=== PATIENT | female | born 1940 | race Caucasian/White ===

== ENCOUNTER 2017-07-26 11:00 | Outpatient (RCR) | payer MEDICARE, OTHER, SELFPAY ==
--- NOTE | 2017-06-10 08:33 | HP.PTEVAL_ITS ---
Patient's Visit Information LOY JOHN is a 77 year old F referred to Physical Therapy by Mazin SEGOVIA with a diagnosis of BILATERAL KNEE OA. Date of Evaluation: 06/10/17 Physical Therapist: Lm Franklin, PT, - Visit Plan Frequency: 2x /Week Duration: 4 Weeks Plan: Aquatic PT for ROM KNEE FLEXABLITY,STRENGTHENING KNEE -HIPS - Subjective Subjective: This 77 y/o female presenst to physical therapy with osteoarthritis of both knees. Patient has had knee pain [address] Cordoba Gel 1 in bilateral knee injection May 18 2017. Recommended PT. Patient pain is worse with with kneeling,squatting,stairs ,extended walking,satnding. Symptoms better with sitting,resting. Denies parathesia/tingling. Pain affects quality of life , housework tasks and ADLS. 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 SOCIAL: - Pain Bilateral Knee Pain Intensity (Out of 10): 7 Pain Intensity Range: 10 Comment: worse - Objective POSTURE: mild foward posture. GAIT: mild foward posture mild knee valgus reciprocal pattern ,mild antalgic gait. NEURO: inact ,denies parathesia/ tingling. STAIRS: one step at time with rail. PALAPTION: MILD tender joint line. MMT: quads/hams 4-/5,hip flexion/abd 4-/5. AROM:knee flexion 0-130 degrees supine. FLEXABLITY: hams min - Special Tests R Knee Kristofer - Meniscus: Negative R Knee Phill - ACL: Negative R Knee Anterior Drawer - ACL: Negative R Knee Valgus - MCL: Negative R Knee Varus - LCL: Negative R Knee Patellar Apprehension - PFS: Negative R Knee Patellar Grind - PFS: Negative L Knee Kristofer - Meniscus: Negative L Knee Valgus - MCL: Negative L Knee Varus - LCL: Negative L Knee Patellar Apprehension - PFS: Negative L Knee Patellar Grind - PFS: Negative - Goals Goal 1:: Independant with Aquatic PT Goal Time Frame: 4-6 Weeks Goal 2:: Decrease knee pain with functiolan activities walking and standing by 50 % or greater Goal Time Frame: 4-6 Weeks Goal 3:: Patient to increase strength 4/5 quads/hams to improve function Goal Time Frame: 4-6 Weeks Goal 4:: Patinet improve quality of gait with less anatlgic 90 % of the time. Goal Time Frame: 4-6 Weeks Goal 5:: Patient able to pefrorm ADL'S and housework tasks with min limitations Goal Time Frame: 4-6 Weeks Goal 6:: Patient able to ascend/descen 12 steps reciprocal. Goal Time Frame: 4-6 Weeks - Rehabilitation Potential Physical Therapy Diagnosis: This patient has bilateral knee pain from OA with pain ,decrease strength impairs walking ,standing and function thus benifit from PT Rehabilitation Potential: Good - Anticipated Interventions Patient/Client Instruction: Educate patient on: Condition, Plan of Care For the Purpose of:: To decrease pain, To increase ROM, To increase tolerance to activity/condition/position, To improve performance and independence with ADL 's, To improve ability of physical actions for home/community/work/leisure, To improve gait and locomotor functions, To improve health of tissue, To decrease soft tissue restriction, To increase flexibility/ROM, To improve ability to perform tasks related to life management Therapeutic Exercise to Include: Strength training, Endurance training, Flexibilty training, Gait and locomotor training, In an aquatic setting, Passive ROM, Active ROM Comment: KNEE/HIPS For the Purpose of:: To decrease pain, To increase ROM, To improve muscle performance and motor function, To improve ability to perform ADL's, To increase tolerance to activity/condition/position, To improve performance and independence with ADL's, To improve ability of physical actions for home/ community/work/leisure, To improve health of tissue, To decrease soft tissue restriction, To increase flexibility/ROM, To improve ability to perform tasks related to life management Thank you for the opportunity to evaluate your patient. For Medicare and Medicare HMO plans, please review the plan of care and approve it. It will need to be FAXED BACK to us at [phone] for Medicare purposes. Please let me know if there are questions or concerns regarding this plan of care. Physician Signature: Date:
--- NOTE | 2017-07-26 11:55 | HP.PTDCSUM ---
HP - PT D/C Summary It has been my pleasure to treat LOY JOHN under orders from Mazin Cordoba, for the diagnosis of BILATERAL KNEE OA for a total of 10 visit(s). Discharge Date: 07/26/17 Please see the following information for a summary of their discharge status. - Subjective Subjective: Doing better .. walking better . Doing better with ADL'S - Pain Bilateral Knee Pain Intensity (Out of 10): 2 - Overall Improvement % Improvement: 50 - Objective Objective/Function: POSTURE: WFL. PALPATION: unremrkable. AROM: 0-125 degrees supine knee flexion. MMT: quads/hams/hip 4/5. GAIT: normal sharon - Goals Goal 1:: Independant with Aquatic PT Goal Progress: Goal Met Goal 2:: Decrease knee pain with functiolan activities walking and standing by 50 % or greater Goal Progress: Goal Met Goal 3:: Patient to increase strength 4/5 quads/hams to improve function Goal Progress: Goal Met Goal 4:: Patinet improve quality of gait with less anatlgic 90 % of the time. Goal Progress: Goal Met Goal 5:: Patient able to pefrorm ADL'S and housework tasks with min limitations Goal Progress: Goal Met Goal 6:: Patient able to ascend/descen 12 steps reciprocal. Goal Progress: Progressing - Plan Plan: D/C TO AQUATICS - D/C Information Discharge Comments: D/C to Aquatics If there are questions or concerns regarding this patient's physical therapy, please feel free to call me at [phone]. Thank you for the referral of this patient. Sincerely, Lm Franklin, PT,
== END 2017-07-26 19:00 | disposition home or self-care (01) ==
LOC: PT 11:00
PROVIDERS: Family Provider Internal Medicine; PCP Internal Medicine; Visit Provider Family Medicine
DX: M17.0 Bilateral primary osteoarthritis of knee (principal)
CPT/HCPCS: 97110; 97113; 97162; 97530

== ENCOUNTER 2018-01-29 08:35 | Emergency (ER) | payer MEDICARE, OTHER, SELFPAY ==
[2018-01-29] VITALS (7 sets, daily range): BP systolic 95–113; BP diastolic 59–88; PULSE 68–160; RESP 14–23; TEMP 36.5; O2SAT 98–99; BMI 33.7
--- NOTE | 2018-01-29 08:58 | EKG12_ITS ---
Test Reason : CARDIOVERSION Blood Pressure : / mmHG Vent. Rate : 091 BPM Atrial Rate : 091 BPM P-R Int : 146 ms QRS Dur : 076 ms QT Int : 340 ms P-R-T Axes : 029 -25 034 degrees QTc Int : 418 ms Sinus rhythm with occasional Premature ventricular complexes Otherwise normal ECG Confirmed by JOSE BOWEN, ROBINSON ([id number]), research editor DANIELLE RIVERA ([id number]) on 02/01/2018 1:40:29 PM Referred By: COURTNEY Confirmed By:ROBINSON GARCIA MD
--- NOTE | 2018-01-29 08:59 | CT_ITS ---
STUDY: CT BRAIN WITHOUT CONTRAST REASON FOR EXAM: Female, 77 years old. Chest pain RADIATION DOSAGE (If Supplied By Facility): CTDIvol = ( 44.99 ) mGy, DLP = ( 745.49 ) mGycm TECHNIQUE: Transaxial CT imaging of the brain was performed without administration of intravenous contrast material. Individualized dose optimization techniques were used for this CT. COMPARISON: None. FINDINGS: Normal soft tissue structures. Normal calvarium. Normal size ventricles and extra-axial spaces for the patient's age. Mild white matter microangiopathic ischemic changes of the cerebral hemispheres. Normal basal ganglia and thalami. Normal brainstem. Normal cerebellum. There is a left chronic subdural hematoma/collection measuring 5 mm in thickness. There are no findings of an acute ischemic infarction. Normal visualized paranasal sinuses. CT/Brain/Head without Contrast IMPRESSION: Chronic left subdural hematoma/collection. Electronically Signed: Lam Kiser DO at 11:13 EST Tel [phone], Service support ,
--- NOTE | 2018-01-29 09:19 | ED.VISSUMM ---
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 She reports that she has palpitations that began approximately 11 PM yesterday. States that she feels as though her heart is racing. She is lightheaded, nauseated, diaphoretic, and short of breath. She reports that she did have an episode of chest pain with this approximately 6:00 this morning while at rest. Pain is 7 out of 10 at worst and she is pain-free currently. It was worsened by exertion. She reports that she took a dose of nitroglycerin. Approximately 10-15 minutes later she reports that she got up and tried to walk to the couch. She had a syncopal episode and fell to the floor. She denies any injuries from this. Patient has a Zio XT monitor on that was placed by her travel guide earlier this week. States that she was supposed to wear this for 2 weeks. States that she had an episode of SVT while in the hospital in November that did not respond to adenosine. She reports that they gave her a different medication that slowed her heart rate. Patient does have a history of what sounds to be a cardiomyopathy following chemo and radiation for breast cancer in 2013. She reports that she had an echocardiogram in 2016 that they state looked better. She had a heart catheterization in 2006 that did not require stents. She is unsure about a stress test. Patient reports that December 16 she was diagnosed with a subarachnoid and subdural hemorrhage. States that she is scheduled to have a follow-up CT in 4 days. Physical Examination: Vitals: 97.7, 113/88, 160, 17, 98% on room air which is not hypoxic. Repeat blood pressure is 95/66.. General: Well-nourished and well-developed. Head: Normocephalic atraumatic. Neck: Supple, no lymphadenopathy. No JVD. Nontender. Cardiovascular: Tachycardic regular rhythm. No murmurs. Respiratory: No respiratory distress. Clear to auscultation bilaterally. Abdominal: Soft, nontender, nondistended, normal bowel sounds. No guarding, rebound, or peritoneal signs. Back: Nontender. Extremities: Nontender, no edema. Skin: Normal color, no rash. Neurologic: Alert and oriented ?3. Cranial nerves II through XII are intact. Normal strength and sensation. Psych: Normal affect. Test Results: EKG shows SVT at 161 with inferior Q waves. This is a change from her last EKG which was in 2013. Repeat EKG is sinus at [address]pecific [address] changes. Initial troponin 0 0.081. Chem-7 is more for BUN of 39, creatinine 2.14, glucose 114. Last creatinines we had were 1.1-1.3. However, these were in 2012 2013. Patient reports that she does have a history of renal insufficiency. CBC is more for hemoglobin of 15.3, lymphocytes 18, monocytes of 12. Chest x-ray is normal. CT brain shows no acute disease and a chronic left subdural hematoma/collection. Emergency Department Course and Treatment: I discussed treatment options with the patient. States that adenosine is not worked in the past and she did not feel well when they did this. I have her blood pressure is low and I do not feel that Cardizem or beta-renee is a good idea. She had her external monitor removed and was given etomidate IV. She was cardioverted and returned to sinus rhythm. She tolerated this well. Treatment Plan: The patient was discussed with Dr. Orellana, covering for her travel guide at [facility], and at this time will be discharged. She is instructed to stop her lisinopril/hydrochlorothiazide and begin metoprolol 25 mg twice daily. She is instructed that if she does go back into an episode of palpitations that she take an extra dose of metoprolol. If this does not resolve in 1-2 hours. Return to the emergency department for further evaluation and transfer. Follow-up with her travel guide in 1-2 weeks for another exam. Return to the emergency department for any worsening symptoms. Disposition: To home in improved and stable condition. Impression: 1. SVT. 2. Syncope after nitroglycerin. 3. Renal insufficiency. This note was generated with Fuzeation software. It may contain incorrect words, spelling, and punctuation that were not noted in review of the chart prior to signing ED Disposition - Plan for ED Patient: Disposition: Home or Assisted Living Chief Complaint: Syncope Instructions: ED Tachycardia Pat PSVT Referrals: Apoorva Carcamo MD [Primary Care Provider] - Additional Instructions: Follow up with Dr. Andrews in 1-2 weeks for another exam. Stop your lisinopril?HCTZ and begin lopressor 25 twice a day. If you have another episode of palpitations take an extra dose of metoprolol. If it does not resolve within 1-2 hours return to the ER.
[2018-01-29 09:20] LABS: Absolute Neutrophil Count 5.5 X10^3/uL (2.0-7.7); Eosinophil# 0.15 X10^3/uL; Eosinophils% 1.8 % (0-5); Hematocrit 45.1 % (37-47); Hemoglobin 15.3 g/dl (12.0-15.0); Lymphocyte % 18.3 % (19-41); Mean Corp Hgb Conc 33.9 g/gl (32-36); Mean Corpuscular Volume 100.2 fL (81-99); Mean Platelet Vol. 10.4 fl (6.2-12.0); Monocyte# 0.98 X10^3/uL; Neutrophil # 5.52 X10^3/uL (2.7-7.7); Neutrophil % 67.5 % (47-70); Platelet Count 172 K/mm3 (150-450); RBC Distribution Width CV 12.9 % (11.6-14.6); RBC Distribution Width SD 46.7 fl (35.1-43.9); White Blood Count 8.2 K/mm3 (4.4-11.0)
--- NOTE | 2018-01-29 09:20 | RAD_ITS ---
STUDY: X-RAY CHEST REASON FOR EXAM: Female, 77 years old. Chest pain TECHNIQUE: Single frontal view COMPARISON: None. FINDINGS: The lungs are clear and expanded. There is no demonstrated pleural abnormality. Normal size heart. Normal mediastinum and des. Normal visualized pulmonary arteries. Normal visualized aortic arch and descending thoracic aorta. Degenerative changes of the thoracic spine. Normal visualized ribs, clavicles, and shoulders. There is no demonstrated abnormality of the visualized soft tissue structures of the upper abdomen. RAD/Chest 1 View (Portable) IMPRESSION: Normal x-ray examination of the chest. Electronically Signed: Lam Kiser DO at 9:42 EST Tel [phone], Service support ,
[2018-01-29 09:21] LABS: POSITIVE COUNT NO; POSITIVE DIFFERENTIAL NO; POSITIVE MORPHOLOGY NO
--- NOTE | 2018-01-29 09:23 | ED.DCSUM_ITS ---
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 She reports that she has palpitations that began approximately 11 PM yesterday. States that she feels as though her heart is racing. She is lightheaded, nauseated, diaphoretic, and short of breath. She reports that she did have an episode of chest pain with this approximately 6:00 this morning while at rest. Pain is 7 out of 10 at worst and she is pain-free currently. It was worsened by exertion. She reports that she took a dose of nitroglycerin. Approximately 10-15 minutes later she reports that she got up and tried to walk to the couch. She had a syncopal episode and fell to the floor. She denies any injuries from this. Patient has a Zio XT monitor on that was placed by her underwriter solicitation director earlier this week. States that she was supposed to wear this for 2 weeks. States that she had an episode of SVT while in the hospital in November that did not respond to adenosine. She reports that they gave her a different medication that slowed her heart rate. Patient does have a history of what sounds to be a cardiomyopathy following chemo and radiation for breast cancer in 2013. She reports that she had an echocardiogram in 2016 that they state looked better. She had a heart catheterization in 2006 that did not require stents. She is unsure about a stress test. Patient reports that December 16 she was diagnosed with a subarachnoid and subdural hemorrhage. States that she is scheduled to have a follow-up CT in 4 days. Physical Examination: Vitals: 97.7, 113/88, 160, 17, 98% on room air which is not hypoxic. Repeat blood pressure is 95/66.. General: Well-nourished and well-developed. Head: Normocephalic atraumatic. Neck: Supple, no lymphadenopathy. No JVD. Nontender. Cardiovascular: Tachycardic regular rhythm. No murmurs. Respiratory: No respiratory distress. Clear to auscultation bilaterally. Abdominal: Soft, nontender, nondistended, normal bowel sounds. No guarding, rebound, or peritoneal signs. Back: Nontender. Extremities: Nontender, no edema. Skin: Normal color, no rash. Neurologic: Alert and oriented ?3. Cranial nerves II through XII are intact. Normal strength and sensation. Psych: Normal affect. Test Results: EKG shows SVT at 161 with inferior Q waves. This is a change from her last EKG which was in 2013. Repeat EKG is sinus at 91 with PVCs and nonspecific ST changes. Initial troponin 0 0.081. Chem-7 is more for BUN of 39, creatinine 2.14, glucose 114. Last creatinines we had were 1.1-1.3. However, these were in 2012 2013. Patient reports that she does have a history of renal insufficiency. CBC is more for hemoglobin of 15.3, lymphocytes 18, monocytes of 12. Chest x-ray is normal. CT brain shows no acute disease and a chronic left subdural hematoma/collection. Emergency Department Course and Treatment: I discussed treatment options with the patient. States that adenosine is not worked in the past and she did not feel well when they did this. I have her blood pressure is low and I do not feel that Cardizem or beta-renee is a good idea. She had her external monitor removed and was given etomidate IV. She was cardioverted and returned to sinus rhythm. She tolerated this well. Treatment Plan: The patient was discussed with Dr. 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 She is instructed to stop her lisinopril/hydrochlorothiazide and begin metoprolol 25 mg twice daily. She is instructed that if she does go back into an episode of palpitations that she take an extra dose of metoprolol. If this does not resolve in 1-2 hours. Return to the emergency department for further evaluation and transfer. Follow-up with her underwriter solicitation director in 1-2 weeks for another exam. Return to the emergency department for any worsening symptoms. Disposition: To home in improved and stable condition. Impression: 1. SVT. 2. Syncope after nitroglycerin. 3. Renal insufficiency. This note was generated with Veebowation software. It may contain incorrect words, spelling, and punctuation that were not noted in review of the chart prior to signing ED Disposition - Plan for ED Patient: Disposition: Home or Assisted Living Chief Complaint: Syncope Instructions: ED Tachycardia Pat PSVT Referrals: Apoorva Carcamo MD [Primary Care Provider] - Additional Instructions: Follow up with Dr. Andrews in 1-2 weeks for another exam. Stop your lisinopril?HCTZ and begin lopressor 25 twice a day. If you have another episode of palpitations take an extra dose of metoprolol. If it does not resolve within 1-2 hours return to the ER.
[2018-01-29] MEDS: 0.9% Normal Saline 1,000 ML 1000 ML IV (09:30)
--- NOTE | 2018-01-29 09:30 | EKG12_ITS ---
Test Reason : IRR HB Blood Pressure : / mmHG Vent. Rate : 161 BPM Atrial Rate : 163 BPM P-R Int : 000 ms QRS Dur : 084 ms QT Int : 298 ms P-R-T Axes : 000 -14 072 degrees QTc Int : 487 ms Supraventricular tachycardia Inferior infarct , age undetermined Abnormal ECG Confirmed by JOSE BOWEN, ROBINSON ([id number]), newspaper editor managing DANIELLE RIVERA ([id number]) on 02/01/2018 1:40:47 PM Referred By: SUSANNA Confirmed By:ROBINSON GARCIA MD
[2018-01-29 09:41] LABS: Anion Gap 12 (5-15); BUN 39 mg/dL (7-18); BUN/Creat Ratio 18.2 RATIO (10-20); Calcium,Total 8.8 mg/dL (8.5-10.1); Chloride 104 mmol/L (98-107); Creatinine, Serum 2.14 mg/dL (0.55-1.02); EST Glomerular Filtration Rate 24 mL/min (>60); Est Glom Filt Rate - Afr Amer 29 mL/min (>60); Estimated Creatinine Clearance 17.14 ml/min; Glucose 114 mg/dL (74-106); Potassium 4.4 mmol/L (3.5-5.1); Sodium Level 139 mmol/L (136-145)
--- NOTE | 2018-01-29 10:13 | NURSING ---
CALLED [facility] FOR DR JUDY MIX, MOP HANDLE ASSEMBLER. TALKED TO NURSE CRYPTOANALYSIS TEACHER. SENT ME TO SOMEONE THAT COULD PAGE OUT CRYPTOANALYSIS TEACHER.
--- NOTE | 2018-01-29 10:19 | NURSING ---
DR PAUL MONTANA WILL BE ACCOUNTING GENERALIST CLINIC LEAD.
[2018-01-29] MEDS: Acetaminophen 500 MG Tablet 1000 MG PO (10:49)
--- NOTE | 2018-01-29 11:06 | NURSING ---
REPAGING DR MONTANA FROM F
--- NOTE | 2018-01-29 11:39 | NURSING ---
DR MONTANA RETURNED CALL. SAID TO HAVE PRINCIPAL ADMINISTRATIVE CLERK QUARTERBACK PAGED
--- NOTE | 2018-01-29 11:42 | NURSING ---
ANKUSH SMITH, TALKED TO OSCAR. HE IS GOING TO PAGE DR FARR FOR US.
--- NOTE | 2018-01-29 11:45 | NURSING ---
DR YORDAN MULLINS
--- NOTE | 2018-01-29 12:36 | ED.RN ---
IV DC'ED, CATHETER INTACT, SMALL GAUZE DRESSING PLACED. DISCHARGE INSTRUCTIONS GIVEN TO AND REVIEWED WITH PATIENT, PATIENT DENIES QUESTIONS OR CONCERNS AND VOICES UNDERSTANDING OF DISCHARGE INSTRUCTIONS. PT TO PRIVATE VEHICLE VIA WHEELCHAIR.
== END 2018-01-29 12:37 | disposition home or self-care (01) ==
LOC: ED 09:10
PROVIDERS: Emergency Provider Emergency Medicine; Family Provider Internal Medicine; PCP Internal Medicine
DX: I47.1 Supraventricular tachycardia (principal); R55 Syncope and collapse; N28.9 Disorder of kidney and ureter, unspecified; I10 Essential (primary) hypertension; Z85.3 Personal history of malignant neoplasm of breast; Z79.899 Other long term (current) drug therapy; Z82.49 Family history of ischemic heart disease and other diseases of the circulatory system
CPT/HCPCS: 70450; 71045; 80048; 84484; 85025; 92960; 93005; 96360; 96361; 99285; J7030; A4216

== ENCOUNTER 2018-03-16 10:00 | Outpatient (RCR) | payer MEDICARE, OTHER, SELFPAY ==
--- NOTE | 2018-01-30 14:48 | HP.OTEVAL_ITS ---
Patient's Visit Information LOY JOHN is a 77 year old F, referred to Occupational Therapy by SAYDA IGLESAIS, with a diagnosis of L subdural hematoma. Date of Evaluation: 01/30/18 Occupational Therapist: Mary Christie, ANSLEYR/Lizet, CHT - Subjective Subjective: pt. arrives and states that she fell down 13 steps backwards while carrying laundry. Following the fall, Pt. CT scan indicated that pt. had an subarachnoid bleed and subdural bleed on the L side of brain. Pt. reports that brain shifted over with the bleed. The fall occured on around (pt. was unsure of the exact date). Recently, pt. also had PSVT tachycardia increase and was admitted into the ER. Pt. was medically tx as appropriate and was released from the ER in the afternoon. - Pain L side of head 2 Pain Intensity Range: 0, 1, 2, 3, 4, 5, 6 - Objective Objective/Observation: OT noted that pt. needed increased time to follow directions and was delayed in her responses to questions at times. - ROM ROM Comments: ROM is functional - Strength Shoulder: 4/5 in R shoulder, L shoulder is 5/5 Technical Research Scientist: 50 # in L and 30# in R Lateral Pinch: 17# in L and 9 # in R Tripod Pinch: 11# in L and 7# in R Strength Comments: no pain with MMT or conductor sleeping car/pinch tests - Sensation Sensation Comments: denies - Cognitive Skills Follows Directions: Yes Cognitive Comments: pt. demo increased time to process directions, therefore causing increased time to complete tasks. - Attention Attention: Normal - Nine Hole Peg Right: 23.92 sec. Left: 22.81 sec. - In-Hand Manipulation Palm to Finger Translation: Mild - Right, Normal - Left Comments: little slower in R than in L, however, pt. is L handed - Stroke Specific Quality of Life Total SS-QOL Score: 135 - Goals Goal:: Patient will increase overall conductor sleeping car strength by 15 lbs. in R hand by completing strengthening exercises and stretches in order to complete BADL?s and IADL?s. Patient will improve lateral and tripod grasps by 5 lbs. in R hand by completing strengthening and stretching exercises in order to complete BADL?s and IADL?s. Patient will complete and demo understanding of UE strengthening exercises to improve UE strength to 4+/5 for increased ability to functionally complete BADL's and IADL's. Goal:: Patient will report overall decrease in pain of <3 in order to complete BADL?s and IADL?s. Goal:: Patient will demonstrate increased speed of motor performance to decrease time to complete BADL's and IADL's. Patient will complete fine motor tasks in order to improve in hand manipulation and increase speed demonstrated by decreased time on 9 hole peg test to less than one min. for increased ability to complete BADL's and IADL's. Goal:: Patient will report understanding of compensatory methods for BADL's and IADL's and report increased I with ability to complete BADL's and IADL's. Pat ient will demo understanding of ECM in order to functionally complete BADL's and IADL's. Goal:: Patient will demo ability to complete 4 money management scenerios in decreased time in order to I and accurately perform volunteer position. Goal:: Patient will report increased I with writing tasks in order to have increased I with IADL's. Goal:: patient will demo/report decreased time to complete tasks required for completion of main entree cook and cashier services for increased I with work tasks. - Rehabilitation General Assessment: Patient presents after exerperiencing a fall that caused a subarachnoid bleed and subdural bleed on the L side of the head. Recently, pt. also was hospitalized after experiencing a PSVT tachycardia. Following these recent incidents, pt. is presenting with decreased UE strength, speech and language difficulties, increased fatigue, difficulty with fine motor skills, l taco manipulating small objects and dexterity, and increased pain in the L side of head. Pt. was referred to speech for further treatment of speech and language difficulties. Pt. would benefit from OT services 2-3x/wk for 6 wks. Therapy session was directly supervised by Mary DAVSI/ERIC Hinds. Rehabilitation Potential: Good - Anticipated Interventions Anticipated Interventions: Early Active Motion, Strengthening, Joint Protection/Energy Conservation, Ergonomic Education, Fine Motor Coord/Thaddeus, Cognitive Skills, ADL Training, Education re assistive Equipment, Education re Diagnosis, Caregiver Training, Home Program - Visit Plan Frequency: 2-3x /Week Duration: 6 Weeks TEXT: Thank you for the opportunity to evaluate your patient. For Medicare and Medicare HMO plans, please review the plan of care and approve it. It will need to be FAXED BACK to us at [phone] for Medicare purposes. Please let me know if there are questions or concerns regarding this plan of care. Physician Signature:_ Date:
--- NOTE | 2018-02-09 11:38 | HP.SP.AD ---
History - History Date of Eval: 02/09/18 Medical Diagnosis (from RX): L subdural hematoma Date of Onset of Diagnosis: november 2017 Previous speech therapy: No Other Relevant Medical History/Diagnoses/Surgery: patient stated that she had fallen 13 steps backwards while carrying laundry. Patient stated that approximately on December 16, [address] scan and it indicated that patient had a subarachnoid bleed. Recently Patient also had PSVT tachycardia increase and was admitted into the ER. Patient was medically treated as appropriate and was released from the ER in the afternoon. Patient states that she has headaches daily usually at night. She has been taking Tylenol which helps. She stated almost every night she has a headache and takes Tylenol. They are gone in the morning when she wakes up. Smoking Status: Never smoker Hx Smoking: No Hx Tobacco Use: No - Pain Is pain an issue with your current prescribed condition?: Yes Patient Allergies - Allergies Allergies labetalol [Labetalol] Allergy (Verified 01/29/18 08:36) Chest tightness tetracycline [Tetracycline] Allergy (Verified 01/29/18 08:36) Rash clonidine Adverse Reaction (Verified 01/29/18 08:36) Other ibuprofen Adverse Reaction (Verified 01/29/18 08:36) Abd cramps/diarrhea CLQT - CLQT CLQT Administered: Yes CLQT: Cognitive Linguistic Quick Test (CLQT) is a criterion - referenced assessment designed for adults between the ages of 18 and 89 with known or suspected neurological dysfuntions. The CLQT is to assess strength and weaknesses in five cognitive domains. Severity ratings are within normal limits, mild, moderate, severe deficits. The subtests are as follows: Date: 02/09/18 - Attention Attention: WNL - Memory Memory: Moderate - Executive Functions Executive Functions: WNL - Language Language: WNL - Visuospatial Skills Visuospatial Skills: WNL - Clock Drawing Severity Rating Clock Drawing Severity Rating: WNL - CLQT Comments comments Patient appeared a little anxious during testing. When presented with the story retelling task, She commented oh no I have to remember the whole thing. Therapist reassured her to just do the best that she could do. Plan - Plan Plan: Patient was within the normal range for attention, executive functions, language and visuospatial skills. She displayed a moderate range of severity for memory, however patient did appear anxious during this task and this may have affected her performance. Patient is receiving OT and the Occupational therapist will monitor her memory skills and incorporate memory tasks into her occupational therapy tasks. - Recommendations Treatment Warranted: No - Prognosis Prognosis: Excellent Education - Patient has Indicated that the Following Identified Educational Needs: None The Patient has indicated that they have no educational or learning abilities that may effect their care.: Yes - Patient Instruction Patient Education: Diagnosis Person Taught: Patient Teaching Method: Discussion Response to teaching: Verbalize understanding
--- NOTE | 2018-02-09 11:42 | HP.SP.DC ---
ST Discharge Summary - Discharged: Discharge: Patient was within the normal range for attention, executive functions, language and visuospatial skills. She displayed a moderate range of severity for memory, however patient did appear anxious during this task and this may have affected her performance. Patient is receiving OT and the Occupational therapist will monitor her memory skills and incorporate memory tasks into her occupational therapy tasks. [ End ]
--- NOTE | 2018-02-15 11:12 | HP.PTEVAL ---
Patient's Visit Information LOY JOHN is a 77 year old F referred to Physical Therapy by SAYDA IGLESIAS with a diagnosis of Balance difficulties. Date of Evaluation: 02/15/18 Physical Therapist: Rajeev Patel DPT, OC - Visit Plan Frequency: 2x /Week Duration: 4-6 Weeks Plan: 2x/week for 4 weeks for. 1. perform and teach vestibualr(foam and or ec) ex. 2. VOR standing walking progression. 3. Sink based LE strength ex taking care with B knee OA. 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 - Subjective Subjective: November fell BW down flight of steps. Had Subdural bleed diagnosed in December. admitted 01/18 to [facility] with embolization procedure to shift brain back to midline. Had dull JOVEL for the first month. Symptoms that sent her to hospital was JOVEL and lost ability to speak and text from the pressure. MRI ordered from previous oncologist showed the subdural bleed. Is walk and wobbly from all of this and wants to get stronger. 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 Had PT here in spring for knees and injections which helped. Initially was wobbling to the left but that is gone. Has a lot of fatigue. Balance slightly worse overall. Intiially fell down the steps after midnight carrying load of laundry. Lights on. Likes to ride bike and is not doing that. Laundry on steps is not a problem but hangs on and rests half way up. Uses cane to walk longer distance. 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 Basic aDLs are OK but energy is low. - Pain JOVEL intermittent Pain Intensity (Out of 10): 0 Pain Intensity Range: 0, 3 - Objective VOR walking is challenging. Walks with a cane mod I and without AD on firm flat surface easily. trasnfers without UE. Steps are challenging without a rail and needs rail to descend, knees are stiff and sore. LE AROM WFL, some tightness present in HS and gastroc. Strength LE 4-/5 without pain except knee ext R>L. reflexes 1/3 patella and achilles. Sensation LE WNL to gross light touch. Coordination to reciprocal toe and heel tap and heel to persaud are normal. - Balance Scores Functional Gait Assessment Score: 24 % Disability: 20.0000 CATSIB Score (Max score 120 seconds): 94 - Goals Goal 1:: Pt I with approp vest/narrow KAILASH and sink strength ex to minimize future problems. Goal Time Frame: 4-6 Weeks Goal 2:: Pt score 26/30 on FGA to dimiiniosh fall risk Goal Time Frame: 4-6 Weeks Goal 3:: Pt feel back to energy level prefall 90% Goal Time Frame: 4-6 Weeks - Rehabilitation Potential Physical Therapy Diagnosis: Balance and strength deficits. Rehabilitation Potential: Fair - Anticipated Interventions Patient/Client Instruction: Educate patient on: Condition, Plan of Care For the Purpose of:: To increase tolerance to activity/condition/position, To improve gait and locomotor functions Therapeutic Exercise to Include: Strength training, Balance training For the Purpose of:: To increase tolerance to activity/condition/position, To improve balance Thank you for the opportunity to evaluate your patient. For Medicare and Medicare HMO plans, please review the plan of care and approve it. It will need to be FAXED BACK to us at [phone] for Medicare purposes. Please let me know if there are questions or concerns regarding this plan of care. Physician Signature: Date:
--- NOTE | 2018-02-22 08:24 | HP.OTDCSUM_ITS ---
HP - OT D/C Summary It has been my pleasure to treat LOY JOHN under orders from SAYDA IGLESIAS, for the diagnosis of L subdural hematoma for a total of 8 visit(s). Please see the following information for a summary of their discharge status. 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 lateral 12# in L and 11# in R. tripod 13# in L and 13# in R. 9 hole peg: L 23.32. 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 in R hand by completing strengthening exercises and stretches in order to complete BADL?s and IADL?s. Patient will improve lateral and tripod grasps by 5 lbs. in R hand by completing strengthening and stretching exercises in order to complete BADL?s and IADL?s. Patient will complete and demo understanding of UE strengthening ex ercises to improve UE strength to 4+/5 for increased ability to functionally complete BADL's and IADL's. Goal:: Patient will report overall decrease in pain of <3 in order to complete BADL?s and IADL?s. Goal:: Patient will demonstrate increased speed of motor performance to decrease time to complete BADL's and IADL's. Patient will complete fine motor tasks in order to improve in hand manipulation and increase speed demonstrated by decreased time on 9 hole peg test to less than one min. for increased ability to complete BADL's and IADL's. Goal:: Patient will report understanding of compensatory methods for BADL's and IADL's and report increased I with ability to complete BADL's and IADL's. Patient will demo understanding of ECM in order to functionally complete BADL's and IADL's. Goal:: Patient will demo ability to complete 4 money management scenerios in decreased time in order to I and accurately perform volunteer position. Goal:: Patient will report increased I with writing tasks in order to have increased I with IADL's. 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 - Plan Plan: crossing midline. money management tasks, counting money, oneil register simulation. UE strengthening - D/C Information Discharge Comments: pt. made progress with strength, fine motor skills, and demo/reports improved processing time when completing functional tasks. 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 pt. reports no further concerns and is d/c on this date. OT instructed pt. to cont. HEP upon d/c. If there are questions or concerns regarding this patient's occupational therapy, please fell free to call me at [phone]. Thank you for the referral of this patient. Sincerely, Mary Christie, OTR/L, CHT
--- NOTE | 2018-03-16 10:48 | HP.PTDCSUM ---
HP - PT D/C Summary It has been my pleasure to treat LOY JOHN under orders from SAYDA IGLESIAS, for the diagnosis of Balance difficulties for a total of 8 visit(s). Discharge Date: 03/16/18 Please see the following information for a summary of their discharge status. - Subjective Subjective: Think it has helped. Feels geno workman has more energy. Balance is more steady and doesn't feel like she is weaving. Exercises at home at counter and in corner for balance. Fox ee doctor sometime soon. - Pain JOVEL intermittent Pain Intensity (Out of 10): 2 bilat knees Pain Intensity (Out of 10): 4 - Overall Improvement % Improvement: 75 - Objective Objective/Function: +2 on FGA and energy level going up. Feels like she can continue to improve on her own with HEP. - Goals Goal 1:: Pt I with approp vest/narrow KAILASH and sink strength ex to minimize future problems. Goal Progress: Goal Met Goal 2:: Pt score 26/30 on FGA to dimiiniosh fall risk Goal Progress: Goal Met Goal 3:: Pt feel back to energy level prefall 90% Goal Progress: Progressing - Plan Plan: D/C, will f/u with doctor when apporp, continue HEP and call if concerns. - D/C Information Discharge Comments: Pt to continue via HEP and f/u with doctor. If there are questions or concerns regarding this patient's physical therapy, please feel free to call me at [phone]. Thank you for the referral of this patient. Sincerely, Raejev Patel, DPT, OCS, CSCS
== END 2018-03-16 19:00 | disposition home or self-care (01) ==
LOC: PT 10:00
PROVIDERS: Family Provider Internal Medicine; PCP Internal Medicine
DX: S06.5X9D Traumatic subdural hemorrhage with loss of consciousness of unspecified duration, subsequent encounter (principal)
CPT/HCPCS: 92523; 97110; 97112; 97162; 97166; 97168; 97530

== ENCOUNTER 2020-09-23 09:30 | Outpatient (RCR) | payer MEDICARE, OTHER, SELFPAY ==
--- NOTE | 2020-07-22 12:21 | HP.PTEVAL_ITS ---
Patient's Visit Information LOY JOHN is a 80 year old F referred to Physical Therapy by Dr. Apoorva Carcamo MD with a diagnosis of DDD Lumbar Spine. 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 Saw MD who thought possible Tao's Cyst- had a cortisone injection in the left knee- helped about a month- from then on it got worse. Agg: stand more than 10 minutes, up/down on stairs, ladders. Pain starts in the left calf and radiates to the ankle. When she stands for 4 hours it takes 2 days to go away. No pain medication so she puts heat on the calf. Very little problems when she sits. If she is shopping more than 5-10 min is using a shopping cart. Dr. Hunter got a back x-ray- mild S shaped scoliosis and moderate degeneration in the lumbar area. Describes the pain as a huge ache- radiates to the ankle- No pain past the ankle- does not radiate up. Does have N/T in the toes due to a medication. No discomfort on the right side. Has stopped volunteering but would like to go back. Had to lift her leg into the car after standing to long. Worst: 6/10 Best: 0/10. Takes about an hour after she sits for the pain to go away at this point. She sits in an overstuffed chair. Hobbies are sowing, knitting and reading- mows the yard-sitting down. If she sits for long periods of time she is painfree. No MRI or CT Scan- no EMG. No injections or pain medications. No previous back injuries or car accidents. Sleep: occasionally- if she has been on her feet for awhile that day- positions herself- more on her side or back- no pillow between her knees. PMHX: kidney disease, HTN, breast cancer 7 years ago. Meds: metorprolol, spinorlocatone, ferosimide, femododine, lipitor, baby asprin, thyroid. - Objective Posture: FH, RS- can correct with tactile and verbal cues- but is unable to maintain. Gait: slightly antalgic- decreased stance on the left LE with poor heel/toe pattern. SLS: weight shift but unable to SLS without UE A. Sensation: WFL to gross touch in LE. Reflex: Patellar bilateral WFL. ROM: Lumbar: WFL in all planes Hip/Knee/Ankle: WFL. Strength: Core: fair minus, Hip: 4/5 throughout, Knee: 4+/5, Ankle: 5/5. Flex: HS: severe, Gastroc: severe. Special Test: Slump: positive, SLR: positive, Dural Signs: positive - Goals Goal 1:: Patient will be I with HEP and progression Goal Time Frame: 4-6 Weeks Goal 2:: Patient will maintain proper posture t/o tx session to demo increase core s/s. Goal 3:: Patient will report no radiating s/s for 1 week Goal Time Frame: 4-6 Weeks - Rehabilitation Potential Physical Therapy Diagnosis: Patient presents with hypomobility- she has decreased LE and core strength/stabilization, flex and muscular endurance leading to poor posture and increased pain with ADL's. Rehabilitation Potential: Good - Anticipated Interventions Patient/Client Instruction: Educate patient on: Benefits of Fitness Program Therapeutic Exercise to Include: Strength training, Endurance training, Agility training, Body mechanics, Postural training, Neuromotor development, In an aquatic setting, Dynamic Lumbar Stabilization, Scapular Strength/Stabilization For the Purpose of:: To improve muscle performance and motor function Thank you for the opportunity to evaluate your patient. For Medicare and Medicare HMO plans, please review the plan of care and approve it. It will need to be FAXED BACK to us at [phone] for Medicare purposes. For Medicare only, by signing this I certify the plan of care. Please let me know if there are questions or concerns regarding this plan of care. Physician Signature: Date:
--- NOTE | 2020-08-21 10:59 | HP.PTREVAL ---
Dr. Apoorva Carcamo MD, It has been my pleasure to treat LOY JOHN over the last 10 visits for DDD Lumbar Spine. Please see the progress note below for an update on the physical therapy plan of care! Subjective: Patient reports that she does not have any pain in the leg. Patient feels that she is 50% better. She wants to have more stability. Objective/Function: Posture: FH, RS- can correct with tactile and verbal cues- and maintained for partial treatment session. Gait: no deviation noted with ambulation in the clinic. SLS: 3 sec then LOB. Sensation: WFL to gross touch in LE. Reflex: Patellar bilateral WFL. ROM: Lumbar: WFL in all planes Hip/Knee/Ankle: WFL. Strength: Core: fair, Hip: 4+/5 throughout, Knee: 4+/5, Ankle: 5/5. Flex: HS: moderate, Gastroc: severe. Special Test: Slump: positive, SLR: positive, Dural Signs: positive Plan Plan: 08/21/2020: Progress to land based exercises. Focus on core strength/stabilization. *add bwd and lateral lunges next. *f/u with supervising PT next appt. Would recommend continued AT at this time for continued progress towards set goals. Could also possibly benefit from transitioning to land PT. *Add step downs next. Aquatic Therapy- focus on LE and core strength/stabilization- postural education Goals Goal 1:: Patient will be I with HEP and progression Goal Time Frame: 4-6 Weeks Goal Progress: Progressing Goal 2:: Patient will maintain proper posture t/o tx session to demo increase core s/s. Goal Progress: Progressing Goal 3:: Patient will report no radiating s/s for 1 week Goal Time Frame: 4-6 Weeks Goal Progress: Goal Met Anticipated Interventions Patient/Client Instruction: Educate patient on: Benefits of Fitness Program Therapeutic Exercise to Include: Strength training, Endurance training, Agility training, Body mechanics, Postural training, Neuromotor development, In an aquatic setting, Dynamic Lumbar Stabilization, Scapular Strength/Stabilization For the Purpose of:: To improve muscle performance and motor function Please do not hesitate to contact me at [phone] by phone or if you have questions or concerns regarding this new plan of care! Sincerely, Trish Gutiérrez DPT
--- NOTE | 2020-09-23 09:51 | HP.PTDCSUM ---
It has been my pleasure to treat LOY JOHN referred by Dr. Apoorva Carcamo MD, with the diagnosis of DDD Lumbar Spine for a total of 18 visit(s). Discharge Date: Please see the following information for a summary of their discharge status. Subjective: Patient reports that she feels that if she continues to do exercises that she will be good. If she stands for hours at a time for the whole day she had a little bit of pain in the left leg. For the most part the pain is gone. LLE Pain Intensity (Out of 10): 0 % Improvement: 100 Objective/Function: Posture: FH, RS- can correct with tactile and verbal cues- and maintained for treatment session. Gait: no deviation noted with ambulation in the clinic- good arm swing and trunk rotation. SLS: 3 sec then LOB. Sensation: WFL to gross touch in LE. Reflex: Patellar bilateral WFL. ROM: Lumbar: WFL in all planes Hip/Knee/Ankle: WFL. Strength: Core: fair, plus Hip: 4+/5 throughout, Knee: 5/5, Ankle: 5/5. Flex: HS: moderate, Gastroc: moderate. Special Test: Slump: neg, SLR: neg, Dural Signs: neg Goal 1:: Patient will be I with HEP and progression Goal Progress: Goal Met Goal 2:: Patient will maintain proper posture t/o tx session to demo increase core s/s. Goal Progress: Goal Met Goal 3:: Patient will report no radiating s/s for 1 week Goal Progress: Goal Met Plan: 09/23/2020: Discharge from PT continue HEP and join riki corrales. 08/21/2020: Progress land-based exercises - Focus on core strength/stabilization If there are questions or concerns regarding this patient's physical therapy, please feel free to call me at [phone]. Thank you for the referral of this patient. Sincerely, Trish Gutiérrez DPT
== END 2020-09-23 12:37 | disposition home or self-care (01) ==
LOC: PT 09:30
PROVIDERS: PCP Internal Medicine; Referring Provider Internal Medicine; Visit Provider Internal Medicine
DX: M51.36 Other intervertebral disc degeneration, lumbar region (principal)
CPT/HCPCS: 97110; 97113; 97162; 97164

== ENCOUNTER → 2022-04-20 | Outpatient (CLI) | payer MEDICARE, OTHER, SELFPAY ==
[2022-04-20] VITALS (7 sets, daily range): BP systolic 101–140; BP diastolic 33–75; PULSE 65–73; RESP 16–18; TEMP 36.2–36.9; O2SAT 93–95; BMI 27.3
== END | disposition home or self-care (01) ==
LOC: MEDOUTP 08:31
PROVIDERS: PCP Internal Medicine; Referring Provider Internal Medicine Hematology & Oncology; Visit Provider Internal Medicine Hematology & Oncology
DX: D53.9 Nutritional anemia, unspecified (principal); D59.9 Acquired hemolytic anemia, unspecified
CPT/HCPCS: 36430; 86850; 86900; 86901; 86920; 86922; J7040; P9016; P9040; A4216

== ENCOUNTER 2022-04-25 12:49 | Inpatient (IN) | payer MEDICARE, OTHER, SELFPAY ==
[2022-04-25] VITALS (16 sets, daily range): BP systolic 109–123; BP diastolic 50–97; PULSE 54–112; RESP 12–24; TEMP 36.3–36.7; O2SAT 88–99; BMI 29.3; BMI 28.7
--- NOTE | 2022-04-25 13:21 | RAD_ITS ---
EXAM: XR CHEST, 1 VIEW CLINICAL INDICATION: Dyspnea. TECHNIQUE: Frontal view of the chest. This report was created using [employer] report generation technology. COMPARISON: 01/29/2018. FINDINGS: LUNGS AND PLEURAL SPACES: Multifocal peripheral interstitial infiltrates in both lungs. No pneumothorax. No effusion. HEART: Unremarkable. Cardiac silhouette not enlarged. MEDIASTINUM: Central airways and mediastinal contour are unremarkable. BONES/JOINTS: Unremarkable. SOFT TISSUES: Unremarkable. VASCULATURE: Atherosclerotic calcifications along the thoracic aorta. RAD/Chest 1 View (Portable) IMPRESSION: Interstitial pneumonitis in both lungs, new when compared to 01/29/2018.. Electronically Signed: Jona Conde MD at 14:29 EST ,
--- NOTE | 2022-04-25 13:21 | EKG12_ITS ---
Test Reason : GENERAL ILLNESS Blood Pressure : / mmHG Vent. Rate : 068 BPM Atrial Rate : 068 BPM P-R Int : 236 ms QRS Dur : 168 ms QT Int : 552 ms P-R-T Axes : 035 -17 034 degrees QTc Int : 586 ms Sinus rhythm with 1st degree A-V block Left bundle branch block Abnormal ECG Confirmed by JOSE BOWEN, ROBINSON ([id number]), scientific editor KAYE LÓPEZ ([id number]) on 04/26/2022 10:07:54 AM Referred By: JEANINE Confirmed By:ROBINSON GARCIA MD
--- NOTE | 2022-04-25 13:24 | EX.ED.DYSGE1 ---
HPI History of Present Illness Chief Complaint: General Illness Detail of Chief Complaint: Hartness of breath and worsening jaundice Informant: patient and spouse/S.O. Onset/Context/Timing Onset: Today and Weeks Context: Gradual Onset Timing: Continuous Current Severity: Moderate Maximum Severity: Moderate Narrative Narrative: 82-year-old female history of breast cancer 9 years ago for which she underwent lumpectomy radiation and chemotherapy. At that time she had no known metastases. Recently hospitalized at [facility] about 4 weeks ago. At that time she had COVID. They did a scan and realize she has bony metastases from her breast cancer. Patient presents today due to shortness of breath today. Worsening jaundice. Patient's had recent MRIs of her abdomen and CAT scans which she states showed no spread to her liver or obstructive lesion. Those were done in outside facilities I do not have those results currently. She denies any chest pain. No hemoptysis. No history of DVT or PE. Prior similar symptoms: Yes Recent Illness/Hospitalization: Yes PFSH PFS Medical History History of breast cancer Hypertension Hypothyroidism Kidney disease Home Medications acetaminophen 325 mg capsule (Tylenol) 2 tab PO Q4H PRN Pain 01/29/18 [History Last Taken Unknown] atorvastatin 10 mg tablet 10 mg PO DAILY 01/29/18 [History Last Taken Unknown] ergocalciferol (vitamin D2) 1,250 mcg (50,000 unit) capsule (Vitamin D2) 50,000 unit PO Q7D 01/29/18 [History Last Taken Unknown] levothyroxine 100 mcg tablet (Synthroid) 100 mcg PO SUWETHFRSA 01/29/18 [History Last Taken Unknown] metoprolol tartrate 100 mg tablet (Lopressor) 25 mg PO BID 01/29/18 [History Last Taken Unknown] spironolactone 50 mg tablet 25 mg PO DAILY 01/29/18 [History Last Taken Unknown] aspirin 81 mg capsule 81 mg PO DAILY 04/20/22 [History Last Taken Unknown] famotidine 20 mg tablet 20 mg PO DAILY 04/20/22 [History Last Taken Unknown] furosemide 20 mg tablet 20 mg PO DAILY 04/20/22 [History Last Taken Unknown] Allergy/AdvReac Type Severity Reaction Status Date / Time labetalol [Labetalol] Allergy Chest Verified 04/25/22 12:54 tightness tetracycline [Tetracycline] Allergy Rash Verified 04/25/22 12:54 clonidine AdvReac Other Verified 04/25/22 12:54 ibuprofen AdvReac Abd Verified 04/25/22 12:54 cramps/diarrhea Surgical History History of thyroidectomy, subtotal Social History Smoking Status: Never smoker ROS ROS ED ROS Narrative Shortness of breath. Jaundice. Review of Systems ROS Unobtainable: Denies due to encephalopathy Constitutional Constitutional ED: Denies chills or fever(s) Eyes Eyes: Denies blurry vision ENT ENT ED: Denies ear pain Cardiovascular Cardiovascular: Denies chest pain Respiratory/Chest Respiratory/Chest: Reports dyspnea; Denies cough Gastrointestinal Gastrointestinal: Denies abdominal pain Genitourinary Genitourinary ED: Denies dysuria or hematuria Musculoskeletal Musculoskeletal: Denies arthralgias Integumentary Denies abscess Neurologic Neurologic: Denies headache(s) Psychiatric Psychiatric: Denies anxiety Endocrine Endocrinology: Denies cold intolerance Hematologic/Lymphatic Hematologic/Lymphatic: Reports none Allergic/Immunologic Allergic/Immunologic ED: Denies mouth swelling or tongue swelling EXAM Physical Exam Narrative Exam Narrative: 82-year-old female vital signs are stable. She is afebrile. Initial pulse ox is 95% on room air. No hypoxia. Patient is in no acute distress. She is extremely jaundiced. H EENT exam shows jaundice and scleral icterus. Moist Riis membranes. Neck nontender no JVD. Lungs clear to auscultation bilaterally. Heart regular rhythm rate about 85 no murmur. Abdomen soft nontender normal bowel sounds no peritoneal signs. Moving all 4 extremities. Calves are nontender without edema edema or cords. Neurologically she is awake and alert with no focal motor deficits. Skin again extremely jaundiced. Back nontender. Const Vital Signs: 04/25/22 12:50 04/25/22 12:55 04/25/22 13:21 Temperature 97.5 F L Temperature Source Oral Pulse Rate 84 67 Respiratory Rate 22 H 21 H Respiratory Effort Short of Breath Respiratory Pattern Tachypnea Blood Pressure 116/62 113/63 Blood Pressure Mean 80 79 Pulse Ox 95 91 Oxygen Delivery Method Room Air Room Air 04/25/22 13:21 Temperature 97.7 F L Temperature Source Oral Pulse Rate 68 Respiratory Rate 20 H Respiratory Effort Respiratory Pattern Blood Pressure 113/63 Blood Pressure Mean 79 Pulse Ox 91 Oxygen Delivery Method Room Air Positive well nourished, well developed and obese; Negative for cachectic, contractures or unkempt General Appearance ED: well developed and NAD; Negative for unkempt, cachectic, contractures, cyanotic or diaphoretic Nutritional Appearance: obese; Negative for cachectic HEENT Reports moist mucous membranes; Denies dry mucous membranes Negative for trauma or tenderness Mouth ED: No dry mucous membranes Mouth: No dry mucous membranes Eyes PERRL and EOMs intact bilaterally Eyes Narrative: Scleral icterus. General Eye ED: Yes scleral icterus; Negative for pale conjunctiva Neck no lymphadenopathy, supple and no JVD General: Negative for tenderness Lymph Lymphatic: Negative for other Chest Wall inspection of chest normal and palpation of chest normal Chest: Negative for other Resp normal respiratory effort and clear to auscultation bilaterally Effort and Inspection: Negative for retractions Auscultation: Negative for rales, rhonchi or wheezes Cardio regular rate, regular rhythm, S1 normal heart sound, S2 normal heart sound and no murmurs Palpation: Negative for palpable S3 Rate: Negative for bradycardia Rhythm: Negative for abnormal rhythm GI normal to inspection, nondistended, normoactive bowel sounds, non-tender, non-distended and no masses Inspection: Negative for abdominal distention Auscultation: normoactive bowel sounds Palpation: soft; Negative for tender or guarding Back/Spine no CVA tenderness General Back: Negative for CVA tenderness Cervical Spine: Negative for cervical spine tenderness Thoracic Spine / Upper Back: Negative for thoracic spinal tenderness Lumbar Spine / Lower Back: Negative for lumbar spinal tenderness Extremity normal to inspection General Extremety ED: Negative for edema or tenderness General Extremity: Negative for edema Neuro oriented x3 and CN's II-XII intact bilaterally Sensorium / Orientation: alert; Negative for orientation impaired, lethargic or stuporous Motor Exam: strength 5/5 throughout Psych mental status grossly normal Appearance: Negative for unkempt Attitude: No agitated Mood & Affect: Negative for depressed, anxious or tearful Skin no rashes or lesions noted and no wounds General Skin Exam: jaundice Lesions: No lesion noted Rashes: No rashes noted Trauma: Negative for abrasion Wounds: Negative for wounds noted MDM MDM MDM Narrative Medical decision making narrative: 82-year-old female extremely jaundiced with known breast cancer with bony metastases. Reportedly no biliary abdominal metastases from prior outside studies. Presents with shortness of breath and worsening jaundice. She undergo a work-up for dyspnea. I will CTA of her chest due to her risk of having a PE due to the cancer. Patient be admitted to PCU. She is DNR. She will receive IV fluids. She will be typed and screened and I will leave it up to the hospitalist if they want to dialyze her. Lab Data Attestation: I reviewed the patient's lab results. Lab results narrative: CBC shows white count 13.6. H&H is 7.2 and 22.2. Platelets 207. Electrolytes show potassium of 5.8. Gap of 16. BUN of 19 creatinine 6.92. All these labs are significantly worse on the most recent with ones we had done here at this facility about 3 months ago at the beginning of January. At that time her hemoglobin was 15 is now 7.2. Her creatinine was just over 2 and its now 6.9. She had normal potassium. I had a lengthy discussion with the patient's oncologist Dr. Torey Pérez. He knows the patient well. From extensive work-up at the [facility] she has no biliary obstruction. No stone. He thinks a lot of this could be secondary to hemolysis from her aortic stenosis and also bone marrow failure from extensive metastases in her bone. She will be treated with IV fluids. Patient does not want to be on a ventilator or have CPR or cardioverted if necessary. I will speak to the hospitalist about admission. Labs: Laboratory Results - last 24 hr 04/25/22 04/25/22 04/25/22 13:16 13:16 13:16 WBC 13.6 H RBC 2.06 L Hgb 7.2 L Hct 22.2 L MCV 107.8 H MCH 35.0 H MCHC 32.4 RDW Std Deviation TNP RDW Coeff of Joyce 42.7 H Plt Count 207 MPV TNP Immature Gran % (Auto) 4.100 H Neut % (Auto) 77.2 H Lymph % (Auto) 4.2 L Fallon % (Auto) 14.1 H Eos % (Auto) 0.1 Baso % (Auto) 0.3 Absolute Neuts (auto) 10.5 H Absolute Lymphs (auto) 0.57 L Nucleated RBC % 39.0 H Differential Comment SCANNED Diff Path Review May foll Polychromasia 1+ Hypochromasia 2+ Poikilocytosis 3+ Anisocytosis 3+ Microcytosis 1+ Macrocytosis 2+ Acanthocytes (Spur) 3+ Sodium 138 Potassium 5.8 H Chloride 105 Carbon Dioxide 17.0 L Anion Gap 16 H BUN 99 H Creatinine 6.92 H Estim Creat Clear Calc 4.66 Est GFR (MDRD) Af Amer 7 L Est GFR (MDRD) Non-Af 6 L BUN/Creatinine Ratio 14.3 Glucose 165 H Calcium 7.1 L Total Bilirubin 43.20 H* Alkaline Phosphatase 200 H Troponin I High Sens 184 H* Albumin 2.3 L Lipase 1442 H Radiography Chest X-Ray - ED: 1 View and Read by ED Physician Rhythm Strip Rhythm Strip: Sinus Rhythm Rate: 68 Ectopy: None EKG Initial EKG: Attestation: I personally reviewed and interpreted this EKG as follows: Interpretation: Sinus Rhythm, No Acute Injury Pattern and LBBB Comments: Normal sinus rhythm rate of 68. First-degree AV block IA interval of 236. With left bundle branch block. No acute signs of DE or ischemia. Prior EKG tracings: available for review Prior: Changed Critical Care Time Critical Care Time: Yes Critical care time (excluding procedures): 30-74 minutes, Including time spent:, Discussing w/Patient &/or Family/Glass Decorator, Discussing w/Consultants, Arranging Admission or Transfer, Performing Direct Patient Care at Bedside and - (37 min) Discharge Plan Dx/Rx/DC Orders Clinical Impression: Jaundice, Breast cancer metastasized to bone, Elevated liver enzymes, Anemia, Acute kidney failure, Acute hyperkalemia, Elevated troponin, Acute pancreatitis, Hemolytic anemia, DNR no code (do not resuscitate) Disposition Disposition: [facility]
[2022-04-25] MEDS: Ondansetron 4 MG/2 ML Vial IV ×2 (13:28→16:48)
[2022-04-25 13:35] LABS: Absolute Lymphocyte Count 0.57 X10^3/uL (0.83-4.51); Absolute Neutrophil Count 10.5 X10^3/uL (2.0-7.7); Basophil# 0.04 X10^3/uL; Basophil% 0.3 % (0-1); Eosinophil# 0.01 X10^3/uL; Eosinophils% 0.1 % (0-5); Hematocrit 22.2 % (37-47); Hemoglobin 7.2 g/dL (12.0-15.0); Lymphocyte # 0.57 X10^3/ul (0.83-4.51); Lymphocyte % 4.2 % (19-41); Mean Corp Hgb Conc 32.4 g/dL (32-36); Mean Corpuscular Volume 107.8 fL (81-99); Monocyte# 1.92 X10^3/uL; Monocyte% 14.1 % (0-10); Neutrophil # 10.51 X10^3/uL (2.7-7.7); Neutrophil % 77.2 % (47-70); POSITIVE COUNT YES; POSITIVE DIFFERENTIAL YES; POSITIVE MORPHOLOGY YES; Platelet Count 207 K/mm3 (150-450); RBC Distribution Width CV 42.7 % (11.6-14.6); Red Blood Count 2.06 M/mm3 (4.2-5.4); White Blood Count 13.6 K/mm3 (4.4-11.0)
[2022-04-25 13:38] LABS: Differential Indicated SCAN CRITERIA MET
[2022-04-25 14:02] LABS: Lipase 1442 U/L (73-393)
[2022-04-25 14:05] LABS: Anisocytosis 3+; Hypochromasia 2+; Macrocytosis 2+; Microcytosis 1+; Poikilocytosis 3+; Polychromasia 1+
[2022-04-25 14:06] LABS: Acanthocytes 3+; Albumin, Serum 2.3 g/dL (3.2-5.0); Alkaline Phosphatase 200 U/L (45-117); Anion Gap 16 (5-15); BUN 99 mg/dL (7-18); BUN/Creat Ratio 14.3 RATIO (10-20); Calcium,Total 7.1 mg/dL (8.5-10.1); Chloride 105 mmol/L (98-107); Creatinine, Serum 6.92 mg/dL (0.55-1.02); EST Glomerular Filtration Rate 6 mL/min (>60); Est Glom Filt Rate - Afr Amer 7 mL/min (>60); Estimated Creatinine Clearance 4.66 ml/min; Glucose 165 mg/dL (74-106); Potassium 5.8 mmol/L (3.5-5.1); Sodium Level 138 mmol/L (136-145); Troponin-I HS 184 pg/mL (3.0-54.0)
[2022-04-25 14:07] LABS: Differential Comment SCANNED
[2022-04-25 14:21] LABS: ALB/GLOB Ratio 0.8 RATIO (0.9-2.4); AST(SGOT) 453 U/L (15-37); Alanine Aminotransfer ALT/SGPT 181 U/L (13-56); Globulin 2.8 g/dL (2.2-4.2); Protein, Total 5.1 g/dL (6.4-8.2)
--- NOTE | 2022-04-25 14:36 | HP.PCM.HOS_ITS ---
HPI - General General Date of Admission: 04/25/22 Date of Service: 04/25/22 Chief Complaint: shortness of breath HPI Narrative LOY JOHN, is a 82 F who presents via the ED on 04/25/2022 with a complaint of shortness of breath. She has a history of breatst cancer diagnosed 9 years ago, s/p radiation, lumpectomy and chemotherapy. She was recently seen at [facility], where as part of the workup, she had chest imaging which showed bony mets. She came in today due to worsening shortness of breath and also worsening jaundice. She recently was transfused with 2 units of blood. She denied any fever, chills, cough, chest pain, palpitations, dizziness, abdominal pain, nausea or vomiting. Review of systems was otherwise negative. VItals were BP of 113/63, UT of 68,. RR of 20 and temp of 97.7F. She was saturating at 91% on room air. CBC showed wbc of 13.6, hb of 7.2 and platelets of 207. CHemistry showed potassium of 5.8, sodium of 138, Cr of 6.92 and total bilirubin of 43.2, Calcium of 7.1, AST/ALT of 453/181 and ALP of 200. Initial troponin is 184 and lipase is 1442. CXR showed interstitial pneumonitis in both lungs. She is being admitted to be managed for acute liver failure due to liver mets from breast cancer as well as nonstemi. PEr ED, her oncologist mentioned that she has hemolysis due to aortic stenosis, so the low hemoglobin could due to hemolysis. [facility] Medical History History of breast cancer Hypertension Hypothyroidism Kidney disease Home Medications atorvastatin 10 mg tablet 10 mg PO DAILY HIGH CHOLESTEROL 01/29/18 [History Last Taken Unknown] ergocalciferol (vitamin D2) 1,250 mcg (50,000 unit) capsule (Vitamin D2) 50,000 unit PO Q7D Check with primary doctor 01/29/18 [History Last Taken Unknown] levothyroxine 100 mcg tablet (Synthroid) 100 mcg PO SUWETHFRSA Check with primary doctor 01/29/18 [History Last Taken Unknown] metoprolol tartrate 100 mg tablet (Lopressor) 25 mg PO BID Check with primary doctor 01/29/18 [History Last Taken Unknown] spironolactone 50 mg tablet 25 mg PO DAILY Check with primary doctor 01/29/18 [History Last Taken Unknown] aspirin 81 mg capsule 81 mg PO DAILY Check with primary doctor 04/20/22 [History Last Taken Unknown] famotidine 20 mg tablet 20 mg PO DAILY Check with primary doctor 04/20/22 [History Last Taken Unknown] furosemide 20 mg tablet 10 mg PO DAILY Check with primary doctor 04/20/22 [History Last Taken Unknown] amiodarone 200 mg tablet 200 mg PO DAILY A. FIB 04/25/22 [History Last Taken Unknown] folic acid 1 mg tablet 1 mg PO DAILY Check with primary doctor 04/25/22 [History Last Taken Unknown] Allergy/AdvReac Type Severity Reaction Status Date / Time labetalol [Labetalol] Allergy Chest Verified 04/25/22 12:54 tightness tetracycline [Tetracycline] Allergy Rash Verified 04/25/22 12:54 clonidine AdvReac Other Verified 04/25/22 12:54 ibuprofen AdvReac Abd Verified 04/25/22 12:54 cramps/diarrhea Surgical History History of thyroidectomy, subtotal Social History Smoking Status: Never smoker ROS Constitutional Constitutional: Reports fatigue, malaise and weakness; Denies anorexia, change in weight, chills or fever(s) Eyes Eyes: Denies change in vision ENT HEENT: Denies dysphagia, headache(s), nasal congestion or sore throat Cardiovascular Cardiovascular: Denies chest pain, dyspnea on exertion, edema, lightheadedness, orthopnea, palpitations, paroxysmal nocturnal dyspnea, rapid heart rate or syncope Respiratory/Chest Respiratory/Chest: Denies cough, dyspnea, productive cough, shortness of breath at rest or shortness of breath with exertion Gastrointestinal Gastrointestinal: Reports abdominal pain, nausea and vomiting; Denies diarrhea, dyspepsia or hematochezia Genitourinary Genitourinary: Denies burning urination or dysuria Musculoskeletal Musculoskeletal: Denies arthralgias, joint pain or joint swelling Neurologic Neurologic: Denies confusion, dizziness, focal weakness, headache(s), seizure- like activity, seizures or syncope Psychiatric Psychiatric: Denies anxiety Endocrine Endocrinology: Reports change in body appearance Hematologic/Lymphatic Hematologic/Lymphatic: Reports anemia Vital Signs Vital Signs Vital Signs: 04/25/22 12:50 04/25/22 12:55 04/25/22 13:21 Temperature 97.5 F L Temperature Source Oral Pulse Rate 84 67 Respiratory Rate 22 H 21 H Respiratory Effort Short of Breath Respiratory Pattern Tachypnea Blood Pressure 116/62 113/63 Blood Pressure Mean 80 79 Pulse Ox 95 91 Oxygen Delivery Method Room Air Room Air 04/25/22 13:21 Temperature 97.7 F L Temperature Source Oral Pulse Rate 68 Respiratory Rate 20 H Respiratory Effort Respiratory Pattern Blood Pressure 113/63 Blood Pressure Mean 79 Pulse Ox 91 Oxygen Delivery Method Room Air Weight Weight: 150 lb 5.684 oz Body Mass Index (BMI) 29.3 Physical Exam Const alert, oriented x3 and no apparent distress Constitutional Narrative: frail General Appearance: cooperative HEENT normocephalic, head/scalp atraumatic and hearing grossly normal bilaterally HEENT Narrative: jaundiced sclera, oral mucosa dry Mouth: oral and palatal mucosa normal Eyes PERRL Eyes Narrative: deeply jaundiced Neck no lymphadenopathy, supple and no JVD Resp normal respiratory effort, no retractions, no use of accessory muscles and clear to auscultation bilaterally Cardio regular rate, regular rhythm, S1 normal heart sound and S2 normal heart sound Cardio Narrative: grade 3 ejection systolic murmur in the aortic valve area GI normal to inspection, nondistended, normoactive bowel sounds, soft to palpation, non-tender and non-distended Extremity normal to inspection, full ROM and no clubbing, cyanosis or edema Skin Skin Narrative: deeply jaundiced from head to toe Neuro oriented x3, CN's II-XII intact bilaterally and moves all extremities Sensorium / Orientation: awake and alert Speech: speech normal Motor Exam: strength 5/5 throughout Psych Psych Narrative: flat affect Results Lab / Micro Data Result Diagrams: 04/25/22 13:16 04/25/22 13:16 Labs: Laboratory Results - last 24 hr 04/25/22 13:16: WBC 13.6 H, RBC 2.06 L, Hgb 7.2 L, Hct 22.2 L, MCV 107.8 H, MCH 35.0 H, MCHC 32.4, RDW Std Deviation TNP, RDW Coeff of Joyce 42.7 H, Plt Count 207, MPV TNP, Immature Gran % (Auto) 4.100 H, Neut % (Auto) 77.2 H, Lymph % (Auto) 4.2 L, Foster % (Auto) 14.1 H, Eos % (Auto) 0.1, Baso % (Auto) 0.3, Absolute Neuts (auto) 10.5 H, Absolute Lymphs (auto) 0.57 L, Nucleated RBC % 39.0 H, Differential Comment SCANNED, Diff Path Review May foll, Polychromasia 1+, Hypochromasia 2+, Poikilocytosis 3+, Anisocytosis 3+, Microcytosis 1+, Macrocytosis 2+, Acanthocytes (Spur) 3+ 04/25/22 13:16: Sodium 138, Potassium 5.8 H, Chloride 105, Carbon Dioxide 17.0 L , Anion Gap 16 H, BUN 99 H, Creatinine 6.92 H, Estim Creat Clear Calc 4.66, Est GFR (MDRD) Af Amer 7 L, Est GFR (MDRD) Non-Af 6 L, BUN/Creatinine Ratio 14.3, Glucose 165 H, Calcium 7.1 L, Total Bilirubin 43.20 H*, AST 453 H, ALT 181 H, Alkaline Phosphatase 200 H, Troponin I High Sens 184 H*, Total Protein 5.1 L, Albumin 2.3 L, Globulin 2.8, Albumin/Globulin Ratio 0.8 L 04/25/22 13:16: Lipase 1442 H Rhythm Strip Rhythm Strip: Sinus Rhythm Rate: 68 Ectopy: None Radiology Impression Chest X-Ray 04/25/22 13:21 IMPRESSION: Interstitial pneumonitis in both lungs, new when compared to 01/29/2018.. Electronically Signed: Jona Conde MD at 14:29 EST , Assessment & Plan Assessment/Plan (1) Jaundice: (2) Breast cancer metastasized to bone: (3) Elevated liver enzymes: (4) Weakness generalized: (5) Anemia: (6) Acute kidney failure: (7) Elevated troponin: (8) Acute hyperkalemia: PLAN: Plan #Severe jaundice * patient is very deeply jaundiced, involving her skin from head to toe * likely due to mets to the liver, though per her oncologist, she also has hemolysis from her aortic stenosis. she may also have spread of cancer to bone marrow * admit to PCU * hemoblogin is 7.2, with platelets of 207 and wbc of 13.6. * total bilirubin is 43. Will check direct and indirect bilirubin * AST/ALT/ALP also elevated at 453/181/200 * lipase is 1442 * there is no clear evidence of obstruction, as she says she doesnt have any pale stools or cola colored urine * consult oncology. Per ED, oncologist to discuss with patient about hospice as there arent any treatment options. * per oncology, imaging of her abdomen done on outpatient basis last week showed no evidence of metastatic disease * #CHRISTINA on CKD with hyperkalemia * Cr is 6.92, with baseline from 2018 in EMRof 2.14 * says she follows up with rating clerk at [facility] * being hydrated with IVF * potassium is 5.8 * will give kayexalate * patient opting for comfort care only, so will hold off on nephrology consult * #Acute on chronic anemia * Hb is 7.2; no recent labs in her EMR * per her oncologist, she has had recurrent anemia due to hemolysis from her severe aortic stenosis * will transfuse 2 units of PRBCs * hold off on any further workup as she has opted for DNRCC #Elevated lipase * lipase is ~ 1400; that is also likely due to abdominal mets from liver cancer * patient says she has had recent MRI and CT scans of her abdomen which didnt show any spread or obstructive lesions. * opting for comfort care now. * oncologist to review tomorrow * #Nonstemi * initial troponin was 189 * she denied any chest pain, though she did admit to shortness of breath * says she recently had a cardiac cath, though she couldnt tell me the results * she gets her care at [facility]. * doesnt want another cath or any further workup, so will hold off on cardiology consult * * #Severe aortic stenosis * says she was to have TAVR done, but was deemed as not a candidate due to metastatic cancer * #History of afib: on amiodarone; will hold in light of markedly dranged liver enzymes. On metoprolol #Heart failure of unknown EF; hold lasix and spironolactone due to CHRISTINA. #Hypothyroidism: on synthroid DVT prophylaxis; SCDs Code status: DNRCC * Patient and her counseled extensively about different types of CODE STATUS including full code, DNR CCA and DNR CC * Patient elects to be DNRCC. She is adamant she wants only comfort care and doesnt want any aggressive measures or any treatment such as dialysis for her kidney failure and treatment for NONSTEMI. * She says she understands that the end is near, and that there is no treatment for her metastatic breast cancer and the attendant complications. * She wants to be made comfortable only, ,and to talk to Dr Pérez tomorrow about comfort care and hospice. * Total [id number] time 18 minutes. Charges/Coding Visit Charges Inpatient E&M: 12603 Init Hosp L3 Procedures Hospitalists Procedures: 97831 Advncd Care Plan 30 Min
[2022-04-25] MEDS: 0.9% Normal Saline 1,000 ML 999 ML IV (14:52)
[2022-04-25] MEDS: 0.9% Normal Saline 1,000 ML 125 ML IV (16:02)
[2022-04-25 17:00] LABS: Troponin-I HS 171 pg/mL (3.0-54.0)
--- NOTE | 2022-04-25 18:12 | EKG12_ITS ---
Test Reason : DYSRHYTMIA Blood Pressure : / mmHG Vent. Rate : 054 BPM Atrial Rate : 075 BPM P-R Int : 000 ms QRS Dur : 164 ms QT Int : 568 ms P-R-T Axes : 000 064 015 degrees QTc Int : 538 ms AV dissociation Left bundle branch block Indeterminate axis Confirmed by JOSE BOWEN, ROBINSON ([id number]), health editor KAYE LÓPEZ ([id number]) on 04/29/2022 10:44:09 AM Referred By: Confirmed By:ROBINSON GARCIA MD
[2022-04-25] MEDS: proMETHazine 25 MG/ML Syringe 12.5 MG IM (19:10)
[2022-04-25] MEDS: Albuterol *CONC* 2.5mg/0.5mL VIAL.NEB. 10 MG INHALATION (19:10)
[2022-04-25] MEDS: Insulin Lispro 10 UNIT in Syringe 0 ML 6 UNIT IV (19:13)
[2022-04-25] MEDS: Calcium Gluconate IV 3 GM in Syringe 1 EACH IV (19:13)
--- NOTE | 2022-04-25 19:44 | EX.EMERGENCY ---
EMERGENCY DOCUMENTATION INITIATED: Date: 03/24/22 Time: 0900 emergency documentation in effect
[2022-04-25 19:53] LABS: Troponin-I HS 185 pg/mL (3.0-54.0)
--- NOTE | 2022-04-25 21:03 | PCM.HOSP.N ---
Hospitalist Note Patient with dyspnea while getting blood with concern for overload. Will add BIPAP and lasix now with temporary hold on PRBC until improving then restart once improving.
[2022-04-25] MEDS: 0.9% Saline Lock 10 ML Syringe IV ×2 (21:16→22:23)
[2022-04-25] MEDS: Furosemide 40 MG/4 ML Vial IV (21:16)
--- NOTE | 2022-04-25 21:41 | EKG12_ITS ---
Test Reason : CP Blood Pressure : / mmHG Vent. Rate : 045 BPM Atrial Rate : 000 BPM P-R Int : 000 ms QRS Dur : 150 ms QT Int : 580 ms P-R-T Axes : 000 097 033 degrees QTc Int : 501 ms Atrial fibrillation with slow ventricular response Rightward axis Left bundle branch block Abnormal ECG When compared with ECG of 25-APR-2022 18:55, MANUAL COMPARISON REQUIRED, DATA IS UNCONFIRMED Confirmed by JOSE BOWEN, ROBINSON ([id number]), web editor KAYE LÓPEZ ([id number]) on 04/29/2022 10:49:04 AM Referred By: Torey Pérez Confirmed By:ROBINSON GARCIA MD
--- NOTE | 2022-04-25 22:12 | CPS ---
placed pt on BiPAP, pt wore for about 10min and asked to remove it as she could not tolerate, placed back on NC
[2022-04-25] MEDS: Morphine 2 MG/ML Syringe IV (22:23)
[2022-04-25 22:56] LABS: International Normalized Ratio 1.9
[2022-04-25 22:57] LABS: Partial Thromboplast Time 39.8 Seconds (24.1-36.2)
--- NOTE | 2022-04-25 23:00 | NURSING ---
pt not tolerating bipap, respirations are 40, tried to encourage pt to use bipap but pt is refusing.
[2022-04-26 00:41] LABS: Bedside Glucose 148 mg/dL (74-106)
[2022-04-26 00:48] VITALS: PULSE 54; RESP 12; RESP 34; O2SAT 97
--- NOTE | 2022-04-26 01:00 | NURSING ---
This RN rounded on pt, found patient to be tachypneic and in pain. Unable to describe pain or where pain is at. Unable to tolerate bipap. Pt was 96% on 4L NC. Since family arrived, pt was changed over to comfort care. PRN ativan given.
--- NOTE | 2022-04-26 01:11 | PCM.HOSP.N ---
Hospitalist Note Patient family has all finally arrived. She is still having anxiety and dyspnea with BIPAP. Given DNR-CC status with planned hospice consultation will transition now for improved comfort to hospice comfort order set to avoid further discomfort. From review of admission records patient with DNR-CC status with planned hospice consultation in AM following review of current status with Dr. Pérez.
[2022-04-26] MEDS: LORazepam 2 MG/ML Syringe 0.5 MG IV (01:32)
--- NOTE | 2022-04-26 01:53 | PCM.HOSP.N ---
Hospitalist Note Time of : 01:43 Date of : 04/26/22
--- NOTE | 2022-04-26 01:58 | EXP.PCM_ITS ---
Preliminary Cause of Preliminary Cause of Preliminary Cause of : #1. Metastatic breast cancer to the bone, likely bone marrow as well as liver with significant hyperbilirubinemia and jaundice #2. Acute kidney injury on chronic kidney disease, unclear subtype or stage with hyperkalemia #3. Acute on chronic anemia, likely associated with acute presentation number 1 but also hemolysis with severe aortic stenosis #4. Elevated lipase, acute pancreatitis secondary to acute presentation number 1 with abdominal metastatic disease as well as disease to the liver secondary to metastatic breast cancer #5. NSTEMI type II secondary to number 1, #2, #3, #4 Date of Admission: 04/25/22 Date of : 04/26/22 (Time of : :43, Date of : 04/26/22) Principle Diagnosis #1. Metastatic breast cancer to the bone, likely bone marrow as well as liver with significant hyperbilirubinemia and jaundice Problem List: Active and Suspected Problems (Updated 04/25/22 @ 14:[address] Dewayne Baron MD) #1. Metastatic breast cancer to the bone, likely bone marrow as well as liver with significant hyperbilirubinemia and jaundice #2. Acute kidney injury on chronic kidney disease, unclear subtype or stage with hyperkalemia #3. Acute on chronic anemia, likely associated with acute presentation number 1 but also hemolysis with severe aortic stenosis #4. Elevated lipase, acute pancreatitis secondary to acute presentation number 1 with abdominal metastatic disease as well as disease to the liver secondary to metastatic breast cancer #5. NSTEMI type II secondary to number 1, #2, #3, #4 #6. Severe aortic stenosis, not a candidate for TAVR secondary to metastatic cancer #7. History atrial fibrillation #8. Heart failure, unclear type #9. Hypothyroidism #10. Hypertension #11. Hyperlipidemia Hospital Course The patient is an 82 y/o F w/ significant disease history as noted above who presented to the ED on 04/25/2022 with primary complaint of dyspnea recently evaluated and treated at [facility] for COVID with work-up at that time demonstrating unfortunately metastatic bony disease with progressively worsening dyspnea and onset of significant jaundice prompting ED evaluation. Patient was evaluated in the ED per Dr. Baron ED physician and Dr. Murguia hospitalist ph ysician with the ED work-up notable for acute kidney injury on chronic kidney disease, acute on chronic anemia, elevated lipase suspected secondary to pancreatitis secondary to metastatic disease with notable liver tumor burden as well as NSTEMI type II secondary to these presentations as well as metastatic breast cancer to the bone, likely bone marrow as well as liver with significant hyperbilirubinemia and jaundice prompting admission. Patient was admitted with DNRCC status following initial hospitalist physician discussions with patient and family. Plan had been for patient to be evaluated in a.m. by her oncologist and discuss hospice with hospice consultation and transition; however, she became progressively more fatigued and dyspneic overnight with a trial of BiPAP not very successful and patient unable to tolerate any PRBC administration with severe ongoing pain. Once patient family arrived hospice order set was initiated and patient passed 04/26/2022 at 01:43.
--- NOTE | 2022-04-26 02:40 | NURSING ---
Pt asystole on monitor. This RN went to check on pt, pulse ox not reading, no pulse found. Suctioned patient. This RN and Karey Walters (RN) listened for pulse. No pulse found, pt not breathing. Time of called at 0143. Family at bedside.
[2022-04-26 13:54] LABS: Pathologist Review Reviewed
== END 2022-04-26 03:13 | DRG 441 ==
LOC: ED 14:49 → PCU 15:13
PROVIDERS: Family Medicine; Admitting Provider Student in an Organized Health Care Education/Training Program; Emergency Provider Emergency Medicine; PCP Internal Medicine; Visit Provider Student in an Organized Health Care Education/Training Program
DX: K72.00 Acute and subacute hepatic failure without coma (principal); K85.90 Acute pancreatitis without necrosis or infection, unspecified; I21.A1 Myocardial infarction type 2; I13.0 Hypertensive heart and chronic kidney disease with heart failure and stage 1 through stage 4 chronic kidney disease, or unspecified chronic kidney disease; C79.51 Secondary malignant neoplasm of bone; C79.52 Secondary malignant neoplasm of bone marrow; C78.7 Secondary malignant neoplasm of liver and intrahepatic bile duct; N17.9 Acute kidney failure, unspecified; I50.9 Heart failure, unspecified; I48.91 Unspecified atrial fibrillation; D63.1 Anemia in chronic kidney disease; F41.9 Anxiety disorder, unspecified; E87.5 Hyperkalemia; E78.5 Hyperlipidemia, unspecified; I35.0 Nonrheumatic aortic (valve) stenosis; D63.0 Anemia in neoplastic disease; N18.9 Chronic kidney disease, unspecified; Z66 Do not resuscitate; Z79.82 Long term (current) use of aspirin; Z79.899 Other long term (current) drug therapy; Z85.3 Personal history of malignant neoplasm of breast; Z86.16 Personal history of COVID-19
CPT/HCPCS: 36415; 71045; 80053; 82962; 83690; 84484; 85025; 85610; 85730; 86850; 86900; 86901; 86920; 86921; 86922; 93005; 94002; 94003; 94640; 99285; J7030; J7040; P9016; A4216; J0610; J1940; J2405